=== PATIENT | female | born 1945 ===

== ENCOUNTER 2018-08-10 16:58 | Inpatient (IN) | payer OTHER ==
[2018-08-10] MEDS ORDERED: Sodium Chloride 0.9% 1,000 ML IV ONE (17:22)
[2018-08-10] MEDS ORDERED: Morphine 4 MG/ML VIAL ONE ×2 (17:29→21:02)
[2018-08-10] MEDS ORDERED: Sodium Chloride 0.9% 1,000 ML ONE (17:30)
--- NOTE | 2018-08-10 17:37 | C.PDOC ---
History Of Present Illness 73 y/o female, with history of hypertension, diabetes, and ventral hernia repair, comes in for evaluation of abdominal pain, worst on RUQ since last week. Patient denies any fever, nausea, or vomiting. Patient was seen here back in 2017 for similar symptoms where she had a suture granuloma removed. Patient was a poor historian. She has no other complaints at this time. Time Seen by Provider: 08/10/18 17:13 Chief Complaint (Nursing): Abdominal Pain History Per: Patient History/Exam Limitations: no limitations Onset/Duration Of Symptoms: Days Current Symptoms Are (Timing): Still Present Past Medical History Reviewed: Historical Data, Nursing Documentation, Vital Signs Vital Signs: Last Vital Signs Temp 98.5 F 08/10/18 17:02 Pulse 69 08/10/18 17:02 Resp 20 08/10/18 17:02 BP 219/99 H 08/10/18 17:02 Pulse Ox 100 08/10/18 17:02 - Medical History PMH: Arthritis, Asthma, COPD, Depression, Hiatal Hernia, HTN, Hyperc holesterolemia Denies: Chronic Kidney Disease Surgical History: Cholecystectomy - [facility] Procedures EXCISION OF RIGHT ABDOMEN MUSCLE, OPEN APPROACH (08/29/15) REMOVAL OF SYNTHETIC SUBSTITUTE FROM ABD WALL, OPEN APPROACH (08/29/15) SUTURE REMOVAL FROM TRUNK REGION (08/29/15) Family History: States: No Known Family Hx - Social History Hx Alcohol Use: No Hx Substance Use: No - Immunization History Hx Tetanus Toxoid Vaccination: No Hx Influenza Vaccination: Yes Hx Pneumococcal Vaccination: Yes Review Of Systems Except As Marked, All Systems Reviewed And Found Negative. Constitutional: Negative for: Fever, Chills Gastrointestinal: Positive for: Abdominal Pain (RUQ). Negative for: Nausea, Vomiting, Diarrhea Physical Exam - Physical Exam Appears: Non-toxic, Other (Uncomfortable from pain) Skin: Warm, Dry Head: Atraumatic, Normacephalic Eye(s): bilateral: Normal Inspection Oral Mucosa: Moist Neck: Supple Cardiovascular: Rhythm Regular, No Murmur Respiratory: Normal Breath Sounds, No Rales, No Rhonchi, No Wheezing Gastrointestinal/Abdominal: Tenderness (RUQ), No Guarding, No Rebound Back: No CVA Tenderness Extremity: No Pedal Edema Extremity: Bilateral: Atraumatic, Normal ROM Neurological/Psych: Oriented x3, Normal Speech ED Course And Treatment - Laboratory Results Result Diagrams: 08/10/18 17:43 08/10/18 17:43 O2 Sat by Pulse Oximetry: 100 (RA) Pulse Ox Interpretation: Normal - CT Scan/US Abd/Pel CT Other Rad Studies (CT/US): Read By Radiologist, Radiology Report Reviewed CT/US Interpretation: FINDINGS: LUNG BASES: The lung bases appear clear. No pleural effusions are seen. LIVER: Unremarkable. GALLBLADDER AND BILE DUCTS: Gallbladder not seen with certainty and may have been surgically removed. PANCREAS: Unremarkable. SPLEEN: Unremarkable. ADRENAL GLANDS: Unremarkable. KIDNEYS, URETERS, AND BLADDER: The kidneys appear within normal limits. There is no hydronephrosis or hydroureter. No urinary calculi are seen. STOMACH AND BOWEL: Unremarkable appearance of the stomach and bowel. No evidence of bowel obstruction. No evidence suggesting enteritis or colitis. Diverticular changes present throughout the colon mainly the descending and sigmoid colon. APPENDIX: No evidence of acute appendicitis on CT examination. PERITONEUM: No free fluid. No free air. LYMPH NODES: No lymphadenopathy is evident. REPRODUCTIVE: Uterus not seen. VASCULATURE: No evidence of abdominal aortic aneurysm. BONES: No aggressive appearing osseous lesion. No acute osseous pathology evide nt. There is thinning of the anterior abdominal musculature with postsurgical changes present anteriorly lower pelvic region with a small seroma measuring approximately 6.7 cm in width and 1.4 cm in thickness along the lower anterior abdominal wall likely postsurgical in nature. Radiopaque densities are seen within the anterior wall and just posterior to the anterior wall also likely postsurgical in nature. IMPRESSION: Postsurgical changes present within the abdomen and pelvis. Gallbladder has likely been surgically removed as well as the uterus. Diverticular changes present mainly at the sigmoid and descending colon. Small seroma measuring approximately 6.7 cm x 1.4 cm along the lower anterior abdominal wall. Close clinical correlation is advised. Medical Decision Making Medical Decision Making: ro pancreaitis obstruction postop complication Plan: --Abd/Pel CT --Labs --Chest XR --UA --Morphine 4 mg IVP --IV fluids 1L labs mild leukocytosis. ct shows seroma. case discussed with dr meier team. seen by karolina kraus. plan to admit ot medicine. accepted Disposition - Disposition Disposition: HOSPITALIZED Disposition Time: 20:51 Condition: STABLE - Clinical Impression Clinical Impression: Seroma, Intractable abdominal pain - Scribe Statement The provider has reviewed the documentation as recorded by the Sergeyibfaviola Rodriguez Provider Attestation: All medical record entries made by the Alexandre were at my direction and personally dictated by me. I have reviewed the chart and agree that the record accurately reflects my personal performance of the history, physical exam, medical decision making, and the department course for this patient. I have also personally directed, reviewed, and agree with the discharge instructions and disposition. Decision To Admit - Pt Status Changed To: Hospital Disposition Of: Observation - . Bed Request Type: Regular Admitting Physician: Jennifer Bueno Patient Diagnosis: Seroma, Intractable abdominal pain
[2018-08-10 17:48] LABS: BASO % 0.4 % (0.0-2.0); EOS # 0.2 K/uL (0.0-0.7); EOS % 1.4 % (0.0-4.0); HEMOGLOBIN 14.9 g/dL (11.0-16.0); LYMPH # 3.6 K/uL (1.0-4.3); LYMPH % 31.4 % (20.0-40.0); MEAN CORPUSCULAR HEMOGLOBIN 29.5 pg (27.0-31.0); MEAN CORPUSCULAR HGB CONC 32.8 g/dL (33.0-37.0); MEAN PLATELET VOLUME 8.1 fL (7.2-11.7); MONO # 0.9 K/uL (0.0-0.8); MONO % 7.5 % (0.0-10.0); NEUT # 6.7 K/uL (1.8-7.0); NEUT % 59.3 % (50.0-75.0); RBC 5.05 Mil/uL (3.80-5.20); RED CELL DISTRIBUTION WIDTH 13.9 % (11.5-14.5); WHITE BLOOD COUNT 11.3 K/uL (4.8-10.8)
[2018-08-10 18:00] LABS: ALB/GLOB RATIO 1.2 (1.0-2.1); ALBUMIN 4.2 g/dL (3.5-5.0); ALT/SGPT 10 U/L (9-52); AST/SGOT 23 U/L (14-36); BILIRUBIN,DIRECT 0.3 mg/dL (0.0-0.4); BLOOD UREA NITROGEN 14 mg/dL (7-17); CALCIUM 9.7 mg/dl (8.6-10.4); GFR NON-AFRICAN AMERICAN 54; LIPASE 141 U/L (23-300)
[2018-08-10 18:02] LABS: INR 1.2; PROTHROMBIN TIME 12.9 SECONDS (9.7-12.2)
--- NOTE | 2018-08-10 19:23 | CP.PCM.CON ---
History of Present Illness - History of Present Illness History of Present Illness: General Surgery Dr. Choi 73 y/o F w/ PMHx HTN, DM, COPD, presents to the ED c/o abd pain. Pt states pain started a few weeks [employer]. Pain described as sharp and constant. Nothing makes pain better or worse. Pain reported to radiate from RUQ to right flank/back. Pt reports similar pain in the past but not this severe. Pt has a scheduled appt w/ PMD tomorrow, 08/11, for the abd pain, but pt states pain too unbearable thus prompting ED visit. Pt admits to concurrent nausea and SOB (2/2 pain) but denies CP and vomiting. Pt also reports insomnia 2/2 pain. Pt denies F/C, D/C, dysuria. In the ED, labs WNL. CTA/P completed which is grossly normal and unchanged from CT in 2016 (last admission). Surgery consulted for abd pain of unknown origin. PMHx: see above, OA, HLD, depression Meds: reviewed in chart ALL: Percocet PSHx: Open Cholecystectomy, Appendectomy, hysterectomy, multiple ventral/incisional hernia repairs SHx: former tobacco use, denies EtOH, Drug use FHx: noncontributory Review of Systems - Review of Systems All systems: reviewed and no additional remarkable complaints except (see HPI) Past Patient History - Infectious Disease Hx of Infectious Diseases: None - Past Medical History & Family History Past Medical History?: Yes - Past Social History Smoking Status: Former Smoker - CARDIAC Hx Hypercholesterolemia: Yes Hx Hypertension: Yes - PULMONARY Hx Asthma: Yes Hx Chronic Obstructive Pulmonary Disease (COPD): Yes - NEUROLOGICAL Hx Neurological Disorder: No - HEENT Hx HEENT Problems: No - RENAL Hx Chronic Kidney Disease: No - ENDOCRINE/METABOLIC Hx Diabetes Mellitus Type 2: Yes - HEMATOLOGICAL/ONCOLOGICAL Hx Blood Disorders: No - INTEGUMENTARY Hx Dermatological Problems: No - MUSCULOSKELETAL/RHEUMATOLOGICAL Hx Arthritis: Yes - GASTROINTESTINAL Hx Gastrointestinal Disorders: No - GENITOURINARY/GYNECOLOGICAL Hx Genitourinary Disorders: No - PSYCHIATRIC Hx Depression: Yes Hx Substance Use: No - SURGICAL HISTORY Hx Cholecystectomy: Yes - ANESTHESIA Hx Anesthesia: Yes Meds Allergies/Adverse Reactions: Allergies Allergy/AdvReac Type Severity Reaction Status Date / Time acetaminophen [From Percocet] Allergy Verified 08/29/15 19:12 oxycodone HCl [From Percocet] Allergy Verified 08/29/15 19:12 Physical Exam - Constitutional Appears: Non-toxic, No Acute Distress - Head Exam Head Exam: NORMAL INSPECTION - Eye Exam Eye Exam: Normal appearance - ENT Exam ENT Exam: Mucous Membranes Moist - Respiratory Exam Respiratory Exam: NORMAL BREATHING PATTERN. absent: Accessory Muscle Use, Respiratory Distress - Cardiovascular Exam Cardiovascular Exam: REGULAR RHYTHM. absent: Bradycardia, Tachycardia - GI/Abdominal Exam GI & Abdominal Exam: Soft, Tenderness (TTP RUQ/epigastric). absent: Distended (obese), Firm, Guarding, Rigid Additional comments: multiple well healed scars. no hernia appreciated - Extremities Exam Extremities exam: Positive for: normal inspection - Neurological Exam Neurological exam: Alert, Oriented x3 - Psychiatric Exam Psychiatric exam: Normal Affect, Normal Mood - Skin Skin Exam: Dry, Intact, Normal Color, Warm Results - Vital Signs Recent Vital Signs: Last Vital Signs Temp 98.5 F 08/10/18 17:02 Pulse 60 08/10/18 18:39 Resp 20 08/10/18 18:39 BP 179/69 H 08/10/18 18:39 Pulse Ox 100 08/10/18 18:41 - Labs Result Diagrams: 08/10/18 17:43 08/10/18 17:43 Labs: Laboratory Results - last 24 hr 08/10/18 08/10/18 08/10/18 17:43 17:43 17:43 WBC 11.3 H RBC 5.05 Hgb 14.9 Hct 45.5 MCV 90.0 D MCH 29.5 MCHC 32.8 L RDW 13.9 Plt Count 294 MPV 8.1 Neut % (Auto) 59.3 Lymph % (Auto) 31.4 [place] % (Auto) 7.5 Eos % (Auto) 1.4 Baso % (Auto) 0.4 Neut # (Auto) 6.7 Lymph # (Auto) 3.6 [place] # (Auto) 0.9 H Eos # (Auto) 0.2 Baso # (Auto) 0.0 PT 12.9 H INR 1.2 APTT 38 H Sodium 140 Potassium 4.6 Chloride 102 Carbon Dioxide 29 Anion Gap 14 BUN 14 Creatinine 1.0 Est GFR ( Amer) > 60 Est GFR (Non-Af Amer) 54 Random Glucose 136 H D Calcium 9.7 Total Bilirubin 0.5 Direct Bilirubin 0.3 AST 23 ALT 10 Alkaline Phosphatase 113 Total Protein 7.7 Albumin 4.2 Globulin 3.4 Albumin/Globulin Ratio 1.2 Lipase 141 - Imaging and Cardiology CT scan - abdomen Status: Image reviewed by me, Report reviewed by me Assessment & Plan - Assessment and Plan (Free Text) Assessment: 73 y/o F w/ abd pain Plan: - diet as tolerated - pain management - monitor bowel fxn - bowel regimen - f/u EKG - NPO@MN for possible OR for scar exploration Pt discussed w/ Dr. Jimbo Koo DO PGY3
--- NOTE | 2018-08-10 20:03 | CP.PCM.HP ---
Past Patient History - Infectious Disease Hx of Infectious Diseases: None - Past Medical History & Family History Past Medical History?: Yes - Past Social History Smoking Status: Former Smoker - CARDIAC Hx Hypercholesterolemia: Yes Hx Hypertension: Yes - PULMONARY Hx Asthma: Yes Hx Chronic Obstructive Pulmonary Disease (COPD): Yes - NEUROLOGICAL Hx Neurological Disorder: No - HEENT Hx HEENT Problems: No - RENAL Hx Chronic Kidney Disease: No - ENDOCRINE/METABOLIC Hx Diabetes Mellitus Type 2: Yes - HEMATOLOGICAL/ONCOLOGICAL Hx Blood Disorders: No - INTEGUMENTARY Hx Dermatological Problems: No - MUSCULOSKELETAL/RHEUMATOLOGICAL Hx Arthritis: Yes - GASTROINTESTINAL Hx Gastrointestinal Disorders: No - GENITOURINARY/GYNECOLOGICAL Hx Genitourinary Disorders: No - PSYCHIATRIC Hx Depression: Yes Hx Substance Use: No - SURGICAL HISTORY Hx Cholecystectomy: Yes - ANESTHESIA Hx Anesthesia: Yes Meds Allergies/Adverse Reactions: Allergies Allergy/AdvReac Type Severity Reaction Status Date / Time acetaminophen [From Percocet] Allergy Verified 08/29/15 19:12 oxycodone HCl [From Percocet] Allergy Verified 08/29/15 19:12 Physical Exam - Constitutional Appears: Well - Head Exam Head Exam: ATRAUMATIC, NORMAL INSPECTION, NORMOCEPHALIC - Eye Exam Eye Exam: EOMI, Normal appearance, PERRL Pupil Exam: NORMAL ACCOMODATION, PERRL - ENT Exam ENT Exam: Mucous Membranes Moist, Normal Exam - Neck Exam Neck exam: Positive for: Normal Inspection - Respiratory Exam Respiratory Exam: Decreased Breath Sounds - Cardiovascular Exam Cardiovascular Exam: REGULAR RHYTHM, +S1, +S2 - GI/Abdominal Exam GI & Abdominal Exam: Normal Bowel Sounds, Soft - Rectal Exam Rectal Exam: Deferred Results - Vital Signs Recent Vital Signs: Last Vital Signs Temp 98.5 F 08/10/18 17:02 Pulse 60 08/10/18 18:39 Resp 20 08/10/18 18:39 BP 179/69 H 08/10/18 18:39 Pulse Ox 100 08/10/18 18:41 - Labs Result Diagrams: 08/10/18 17:43 08/10/18 17:43 Labs: Laboratory Results - last 24 hr 08/10/18 08/10/18 08/10/18 17:43 17:43 17:43 WBC 11.3 H RBC 5.05 Hgb 14.9 Hct 45.5 MCV 90.0 D MCH 29.5 MCHC 32.8 L RDW 13.9 Plt Count 294 MPV 8.1 Neut % (Auto) 59.3 Lymph % (Auto) 31.4 [place] % (Auto) 7.5 Eos % (Auto) 1.4 Baso % (Auto) 0.4 Neut # (Auto) 6.7 Lymph # (Auto) 3.6 [place] # (Auto) 0.9 H Eos # (Auto) 0.2 Baso # (Auto) 0.0 PT 12.9 H INR 1.2 APTT 38 H Sodium 140 Potassium 4.6 Chloride 102 Carbon Dioxide 29 Anion Gap 14 BUN 14 Creatinine 1.0 Est GFR ( Amer) > 60 Est GFR (Non-Af Amer) 54 Random Glucose 136 H D Calcium 9.7 Total Bilirubin 0.5 Direct Bilirubin 0.3 AST 23 ALT 10 Alkaline Phosphatase 113 Total Protein 7.7 Albumin 4.2 Globulin 3.4 Albumin/Globulin Ratio 1.2 Lipase 141
[2018-08-10 20:15] LABS: SQUAMOUS EPITHIAL 5 /hpf (0-5); URINE BILIRUBIN NEGATIVE (NEGATIVE); URINE BLOOD NEGATIVE (NEGATIVE); URINE CLARITY Clear (Clear); URINE COLOR Straw (YELLOW); URINE GLUCOSE (UA) NORMAL (Normal); URINE LEUKOCYTE ESTERASE NEG Leu/uL (Negative); URINE PROTEIN NEGATIVE (NEGATIVE); URINE UROBILINOGEN NORMAL mg/dL (0.2-1.0)
[2018-08-10] MEDS: Docusate-Senna 50 mg-8.6 mg Tab PO SCH (20:45)
[2018-08-10] MEDS: Lactated Ringer's 1,000 ML IV SCH (20:59)
[2018-08-10] MEDS: Morphine 4 MG/ML VIAL IVP PRN (21:05)
[2018-08-10] MEDS: Piperacillin/Tazobact 3.375 GM in Sodium Chloride 100 ML IVPB SCH (23:03)
[2018-08-11] MEDS: Tramadol 25 mg PO PRN ×2 (00:12→20:29)
[2018-08-11] MEDS: Piperacillin/Tazobact 3.375 GM in Sodium Chloride 100 ML IVPB SCH ×3 (06:25→21:52)
--- NOTE | 2018-08-11 09:53 | RAD ---
Date of service: 08/10/2018 HISTORY: abd pain COMPARISON: 05/03/2016 FINDINGS: LUNGS: No active pulmonary disease. PLEURA: No significant pleural effusion identified, no pneumothorax apparent. CARDIOVASCULAR: No aortic atherosclerotic calcification present. Normal cardiac size. No pulmonary vascular congestion. OSSEOUS STRUCTURES: No significant abnormalities. VISUALIZED UPPER ABDOMEN: Normal. OTHER FINDINGS: None. IMPRESSION: No active disease.
[2018-08-11] MEDS ORDERED: OXAPROZIN 600 MG PO SCH (10:00)
[2018-08-11] MEDS ORDERED: LEFLUNOMIDE 10 MG PO SCH (10:00)
[2018-08-11] MEDS: Docusate-Senna 50 mg-8.6 mg Tab PO SCH ×2 (10:24→18:16)
[2018-08-11] MEDS: Lidocaine 5% Patch TD SCH (10:25)
--- NOTE | 2018-08-11 11:36 | CT ---
PROCEDURE: CT Abdomen and Pelvis without Oral or IV contrast. HISTORY: abd pain COMPARISON: None available. TECHNIQUE: Contiguous axial images of the abdomen and pelvis. No oral or IV contrast administered. Coronal and Sagittal reformats generated and reviewed. Radiation dose: Total exam DLP = 815.31 mGy-cm. This CT exam was performed using one or more of the following dose reduction techniques: Automated exposure control, adjustment of the mA and/or kV according to patient size, and/or use of iterative reconstruction technique. FINDINGS: There is limited evaluation of the solid organs without the administration of IV contrast. LOWER THORAX: No visible consolidation, pleural effusion, or pneumothorax. 3 mm right lower lobe calcified granuloma. Small hiatal hernia/distal esophageal wall thickening. LIVER: Hepatomegaly. GALLBLADDER AND BILE DUCTS: Unremarkable. PANCREAS: Unremarkable. SPLEEN: Unremarkable. ADRENALS: Unremarkable. KIDNEYS AND URETERS: No hydronephrosis or obstructing renal calculus. BLADDER: REPRODUCTIVE: Uterus is absent presumably due to hysterectomy. APPENDIX: The appendix is not identified. No secondary signs of acute appendicitis. BOWEL: The stomach is nondistended. Lack of oral contrast limits evaluation for bowel pathology. The bowel loops appear within normal limits of caliber without evidence of intestinal obstruction. Diverticulosis without CT evidence of acute diverticulitis. PERITONEUM: No significant free fluid. No definite free air. LYMPH NODES: No bulky lymphadenopathy identified. VASCULATURE: Atherosclerotic calcifications of the aorta and branches. No aortic aneurysm. BONES: Osseous demineralization. Degenerative changes. 8 mm T12 vertebral body lucency. OTHER FINDINGS: Again seen is a small collection which now measures approximately 6.7 x 1.4 cm along the lower anterior abdominal wall. Radiopaque densities are noted within abdomen posterior to this finding presumably postsurgical in etiology. IMPRESSION: Small collection again seen within the lower anterior abdominal wall as above. Additional findings as above. Preliminary impression was provided by [employer].
--- NOTE | 2018-08-11 12:13 | CP.PCM.PN ---
Subjective - Date & Time of Evaluation Date of Evaluation: 08/11/18 Time of Evaluation: 12:09 - Subjective Subjective: point tenderness epigastric and ruq. appears superficial and seems related to previus hernia repair. patients pain is persistent and severe suggesting possible neuroma or suture grnuoma. plan will take to OR explore involved are and possibly excise neuroma or suture granuloma. will schedule for the am. Objective - Vital Signs/Intake and Output Vital Signs (last 24 hours): Temp Pulse Resp BP Pulse Ox 97.8 F 62 20 164/66 H 96 08/11/18 07:06 08/11/18 07:06 08/11/18 07:06 08/11/18 07:06 08/11/18 11:30 - Medications Medications: Current Medications Famotidine (Pepcid) 20 mg IVP DAILY [facility] Last Admin: 08/11/18 10:47 Dose: 20 mg Glipizide (Glucotrol) 5 mg PO BID [facility] Last Admin: 08/11/18 10:23 Dose: Not Given Home Med (Leflunomide [Leflunomide]) 10 mg PO DAILY [facility] Home Med (Oxaprozin [Oxaprozin]) 600 mg PO DAILY [facility] Home Med (Valsartan [Diovan]) 1 tab PO DAILY [facility] Lactated Ringer's (Lactated Ringer's) 1,000 mls @ 100 mls/hr IV .Q10H [facility] Last Admin: 08/10/18 20:59 Dose: 100 mls/hr Piperacillin Sod/Tazobactam (Sod 3.375 gm/ Sodium Chloride) 100 mls @ 200 mls/hr IVPB Q8H [facility]; Protocol Last Admin: 08/11/18 06:25 Dose: 200 mls/hr Lidocaine (Lidoderm) 1 ea TD DAILY [facility] Last Admin: 08/11/18 10:25 Dose: Not Given Metoclopramide HCl (Reglan) 10 mg IVP Q8 [facility] Montelukast Sodium (Singulair) 10 mg PO DAILY [facility] Last Admin: 08/11/18 10:24 Dose: Not Given Morphine Sulfate (Morphine) 4 mg IVP Q4 PRN PRN Reason: Pain, severe (8-10) Last Admin: 08/10/18 21:05 Dose: 4 mg Pregabalin (Lyrica) 75 mg PO DAILY [facility] Last Admin: 08/11/18 10:23 Dose: Not Given Rosuvastatin Calcium (Crestor) 20 mg PO HS [facility] Last Admin: 08/10/18 23:03 Dose: 20 mg Senna/Docusate Sodium (Senokot S 50 Mg-8.6 Mg) 1 tab PO BID [facility] Last Admin: 08/11/18 10:24 Dose: Not Given Tramadol HCl (Ultram) 25 mg PO Q6 PRN PRN Reason: Pain, moderate (4-7) Last Admin: 08/11/18 00:12 Dose: 25 mg Zolpidem Tartrate (Ambien) 5 mg PO HS [facility] Last Admin: 08/10/18 23:03 Dose: 5 mg - Labs Labs: 08/10/18 17:43 08/10/18 17:43 PT 12.9 SECONDS (9.7-12.2) H 08/10/18 17:43 INR 1.2 08/10/18 17:43 APTT 38 SECONDS (21-34) H 08/10/18 17:43
[2018-08-11] MEDS: Lactated Ringer's 1,000 ML IV SCH ×3 (12:50→21:53)
--- NOTE | 2018-08-11 16:43 | CP.PCM.CON ---
<Shady Fournier - Last Filed: 08/11/18 16:44> History of Present Illness - History of Present Illness History of Present Illness: 73 y/o female, with history of hypertension, diabetes, and ventral hernia repair, comes in for evaluation of abdominal pain, worst on RUQ since last week. Patient denies any fever, nausea, or vomiting. Patient was seen here back in 2017 for similar symptoms where she had a suture granuloma removed. Patient was a poor historian. She has no other complaints at this time. PMHX: HTN chronic fair, HTN chronic mild, LIPIDS maintained on statin Past Patient History - Infectious Disease Hx of Infectious Diseases: None - Past Medical History & Family History Past Medical History?: Yes - Past Social History Smoking Status: Former Smoker - CARDIAC Hx Hypercholesterolemia: Yes Hx Hypertension: Yes - PULMONARY Hx Asthma: Yes Hx Chronic Obstructive Pulmonary Disease (COPD): Yes - NEUROLOGICAL Hx Neurological Disorder: No - HEENT Hx HEENT Problems: No - RENAL Hx Chronic Kidney Disease: No - ENDOCRINE/METABOLIC Hx Diabetes Mellitus Type 2: Yes - HEMATOLOGICAL/ONCOLOGICAL Hx Blood Disorders: No - INTEGUMENTARY Hx Dermatological Problems: No - MUSCULOSKELETAL/RHEUMATOLOGICAL Hx Falls: No - GASTROINTESTINAL Hx Gastrointestinal Disorders: No - GENITOURINARY/GYNECOLOGICAL Hx Genitourinary Disorders: No - PSYCHIATRIC Hx Depression: Yes Hx Substance Use: No - SURGICAL HISTORY Hx Cholecystectomy: Yes - ANESTHESIA Hx Anesthesia: Yes Meds Allergies/Adverse Reactions: Allergies Allergy/AdvReac Type Severity Reaction Status Date / Time acetaminophen [From Percocet] Allergy ITCHING Verified 08/10/18 20:22 iodine Allergy ITCHING Verified 08/10/18 20:22 oxycodone HCl [From Percocet] Allergy ITCHING Verified 08/10/18 20:22 seafood Allergy ITCHING Uncoded 08/10/18 20:22 - Medications Medications: Current Medications Famotidine (Pepcid) 20 mg IVP DAILY [facility] Last Admin: 08/11/18 10:47 Dose: 20 mg Glipizide (Glucotrol) 5 mg PO BID [facility] Last Admin: 08/11/18 10:23 Dose: Not Given Home Med (Leflunomide [Leflunomide]) 10 mg PO DAILY [facility] Home Med (Oxaprozin [Oxaprozin]) 600 mg PO DAILY [facility] Lactated Ringer's (Lactated Ringer's) 1,000 mls @ 100 mls/hr IV .Q10H [facility] Last Admin: 08/11/18 12:50 Dose: 100 mls/hr Piperacillin Sod/Tazobactam (Sod 3.375 gm/ Sodium Chloride) 100 mls @ 200 mls/h r IVPB Q8H [facility]; Protocol Last Admin: 08/11/18 14:29 Dose: 200 mls/hr Lidocaine (Lidoderm) 1 ea TD DAILY [facility] Last Admin: 08/11/18 10:25 Dose: Not Given Losartan Potassium (Cozaar) 100 mg PO DAILY [facility] Metoclopramide HCl (Reglan) 10 mg IVP Q8 [facility] Montelukast Sodium (Singulair) 10 mg PO DAILY [facility] Last Admin: 08/11/18 10:24 Dose: Not Given Morphine Sulfate (Morphine) 4 mg IVP Q4 PRN PRN Reason: Pain, severe (8-10) Last Admin: 08/10/18 21:05 Dose: 4 mg Pregabalin (Lyrica) 75 mg PO DAILY [facility] Last Admin: 08/11/18 10:23 Dose: Not Given Rosuvastatin Calcium (Crestor) 20 mg PO HS [facility] Last Admin: 08/10/18 23:03 Dose: 20 mg Senna/Docusate Sodium (Senokot S 50 Mg-8.6 Mg) 1 tab PO BID [facility] Last Admin: 08/11/18 10:24 Dose: Not Given Tramadol HCl (Ultram) 25 mg PO Q6 PRN PRN Reason: Pain, moderate (4-7) Last Admin: 08/11/18 00:12 Dose: 25 mg Zolpidem Tartrate (Ambien) 5 mg PO HS [facility] Last Admin: 08/10/18 23:03 Dose: 5 mg Results - Vital Signs Recent Vital Signs: Last Vital Signs Temp 97.8 F 08/11/18 15:00 Pulse 60 08/11/18 15:00 Resp 20 08/11/18 15:00 BP 155/73 H 08/11/18 15:00 Pulse Ox 96 08/11/18 15:00 - Labs Result Diagrams: 08/10/18 17:43 08/10/18 17:43 Labs: Laboratory Results - last 24 hr 08/10/18 08/10/18 08/10/18 17:43 17:43 17:43 WBC 11.3 H RBC 5.05 Hgb 14.9 Hct 45.5 MCV 90.0 D MCH 29.5 MCHC 32.8 L RDW 13.9 Plt Count 294 MPV 8.1 Neut % (Auto) 59.3 Lymph % (Auto) 31.4 [place] % (Auto) 7.5 Eos % (Auto) 1.4 Baso % (Auto) 0.4 Neut # (Auto) 6.7 Lymph # (Auto) 3.6 [place] # (Auto) 0.9 H Eos # (Auto) 0.2 Baso # (Auto) 0.0 PT 12.9 H INR 1.2 APTT 38 H Sodium 140 Potassium 4.6 Chloride 102 Carbon Dioxide 29 Anion Gap 14 BUN 14 Creatinine 1.0 Est GFR ( Amer) > 60 Est GFR (Non-Af Amer) 54 POC Glucose (mg/dL) Random Glucose 136 H D Calcium 9.7 Total Bilirubin 0.5 Direct Bilirubin 0.3 AST 23 ALT 10 Alkaline Phosphatase 113 Total Protein 7.7 Albumin 4.2 Globulin 3.4 Albumin/Globulin Ratio 1.2 Lipase 141 Urine Color Urine Clarity Urine pH Ur Specific [place] Urine Protein Urine Glucose (UA) Urine Ketones Urine Blood Urine Nitrate Urine Bilirubin Urine Urobilinogen Ur Leukocyte Esterase Urine WBC (Auto) Urine RBC (Auto) Ur Squamous Epith Cells 08/10/18 08/11/18 08/11/18 19:59 06:43 11:02 WBC RBC Hgb Hct MCV MCH MCHC RDW Plt Count MPV Neut % (Auto) Lymph % (Auto) [place] % (Auto) Eos % (Auto) Baso % (Auto) Neut # (Auto) Lymph # (Auto) [place] # (Auto) Eos # (Auto) Baso # (Auto) PT INR APTT Sodium Potassium Chloride Carbon Dioxide Anion Gap BUN Creatinine Est GFR ( Amer) Est GFR (Non-Af Amer) POC Glucose (mg/dL) 130 H 142 H Random Glucose Calcium Total Bilirubin Direct Bilirubin AST ALT Alkaline Phosphatase Total Protein Albumin Globulin Albumin/Globulin Ratio Lipase Urine Color Straw Urine Clarity Clear Urine pH 7.0 Ur Specific [place] 1.008 Urine Protein Negative Urine Glucose (UA) Normal Urine Ketones Negative Urine Blood Negative Urine Nitrate Negative Urine Bilirubin Negative Urine Urobilinogen Normal Ur Leukocyte Esterase Neg Urine WBC (Auto) < 1 Urine RBC (Auto) < 1 Ur Squamous Epith Cells 5 08/11/18 15:54 WBC RBC Hgb Hct MCV MCH MCHC RDW Plt Count MPV Neut % (Auto) Lymph % (Auto) [place] % (Auto) Eos % (Auto) Baso % (Auto) Neut # (Auto) Lymph # (Auto) [place] # (Auto) Eos # (Auto) Baso # (Auto) PT INR APTT Sodium Potassium Chloride Carbon Dioxide Anion Gap BUN Creatinine Est GFR ( Amer) Est GFR (Non-Af Amer) POC Glucose (mg/dL) 126 H Random Glucose Calcium Total Bilirubin Direct Bilirubin AST ALT Alkaline Phosphatase Total Protein Albumin Globulin Albumin/Globulin Ratio Lipase Urine Color Urine Clarity Urine pH Ur Specific [place] Urine Protein Urine Glucose (UA) Urine Ketones Urine Blood Urine Nitrate Urine Bilirubin Urine Urobilinogen Ur Leukocyte Esterase Urine WBC (Auto) Urine RBC (Auto) Ur Squamous Epith Cells - Imaging and Cardiology Chest x-ray Status: Image reviewed by me Assessment & Plan - Assessment and Plan (Free Text) Assessment: 73 y/o with possible abdominal collection: may need exploration in OR > EKG: NSR > CXR: No infiltrate or effusion HTN: Uncontrolled on losartan, add norvasc 5 LIPIDS: cont statin Plan echo to evaluate cardiac structure and function prior to OR DVT prophylaxis cont DM control <Madhu Warren - Last Filed: 08/12/18 10:18> Review of Systems - Review of Systems All systems: reviewed and no additional remarkable complaints except Review of Systems: Abdominal pain Meds - Medications Medications: Current Medications Famotidine (Pepcid) 20 mg IVP DAILY [facility] Last Admin: 08/12/18 09:49 Dose: 20 mg Glipizide (Glucotrol) 5 mg PO BID [facility] Last Admin: 08/11/18 18:16 Dose: 5 mg Home Med (Leflunomide [Leflunomide]) 10 mg PO DAILY [facility] Lactated Ringer's (Lactated Ringer's) 1,000 mls @ 100 mls/hr IV .Q10H [facility] Last Admin: 08/12/18 02:00 Dose: Not Given Piperacillin Sod/Tazobactam (Sod 3.375 gm/ Sodium Chloride) 100 mls @ 200 mls/hr IVPB Q8H [facility]; Protocol Last Admin: 08/12/18 05:57 Dose: 200 mls/hr Lidocaine (Lidoderm) 1 ea TD DAILY [facility] Last Admin: 08/12/18 09:50 Dose: 1 ea Losartan Potassium (Cozaar) 100 mg PO DAILY [facility] Last Admin: 08/12/18 09:49 Dose: 100 mg Metoclopramide HCl (Reglan) 5 mg IVP Q8 [facility] Last Admin: 08/12/18 05:58 Dose: 5 mg Montelukast Sodium (Singulair) 10 mg PO DAILY [facility] Last Admin: 08/12/18 09:49 Dose: 10 mg Morphine Sulfate (Morphine) 4 mg IVP Q4 PRN PRN Reason: Pain, severe (8-10) Last Admin: 08/11/18 20:33 Dose: 4 mg Pregabalin (Lyrica) 75 mg PO DAILY [facility] Last Admin: 08/12/18 09:48 Dose: 75 mg Rosuvastatin Calcium (Crestor) 20 mg PO HS [facility] Last Admin: 08/11/18 21:52 Dose: 20 mg Senna/Docusate Sodium (Senokot S 50 Mg-8.6 Mg) 1 tab PO BID [facility] Last Admin: 08/11/18 18:16 Dose: 1 tab Tramadol HCl (Ultram) 25 mg PO Q6 PRN PRN Reason: Pain, moderate (4-7) Last Admin: 08/12/18 09:48 Dose: 25 mg Zolpidem Tartrate (Ambien) 5 mg PO HS [facility] Last Admin: 08/11/18 21:26 Dose: Not Given Physical Exam - Constitutional Appears: Well, Non-toxic - Head Exam Head Exam: ATRAUMATIC, NORMAL INSPECTION - Eye Exam Eye Exam: PERRL. absent: Scleral icterus - ENT Exam ENT Exam: Mucous Membranes Moist, Normal External Ear Exam - Neck Exam Neck exam: Negative for: Lymphadenopathy, Thyromegaly - Respiratory Exam Respiratory Exam: Clear to Auscultation Bilateral, NORMAL BREATHING PATTERN - Cardiovascular Exam Cardiovascular Exam: REGULAR RHYTHM, RRR, +S1. absent: JVD, Systolic Murmur - GI/Abdominal Exam GI & Abdominal Exam: Normal Bowel Sounds. absent: Organomegaly - Extremities Exam Extremities exam: Negative for: calf tenderness, pedal edema - Neurological Exam Neurological exam: CN II-XII Intact, Oriented x3 - Psychiatric Exam Psychiatric exam: Normal Affect, Normal Mood Results - Vital Signs Recent Vital Signs: Last Vital Signs Temp 98.0 F 08/12/18 08:00 Pulse 57 L 08/12/18 08:00 Resp 20 08/12/18 08:00 BP 161/75 H 08/12/18 08:00 Pulse Ox 95 08/12/18 08:00 - Labs Result Diagrams: 08/10/18 17:43 08/10/18 17:43 Labs: Laboratory Results - last 24 hr 08/11/18 08/11/18 08/11/18 11:02 15:54 20:56 POC Glucose (mg/dL) 142 H 126 H 97 08/12/18 06:47 POC Glucose (mg/dL) 109 - EKG Data EKG Interpreted by: Myself EKG shows normal: Sinus rhythm Rate: Normal - Imaging and Cardiology 2D echo Status: Image reviewed by me Additional comment: Normal LV systolic function Stage I diastolic dysfunction Assessment & Plan - Assessment and Plan (Free Text) Assessment: 2D echo reviewed by me shows normal filling pressures, normal valve function pateint was seen and exmined by myself. I reviewed the H&P above and agree with the findings PATEINT PERFORMS >4 METS DAILY. SHE IS ACCEPTABLE RISK FOR GRANULOMA EXPLORATION AND REPAIR. - Date & Time Date: 08/12/18 Time: 10:18
--- NOTE | 2018-08-11 20:13 | CP.PCM.PN ---
Subjective - Date & Time of Evaluation Date of Evaluation: 08/11/18 Time of Evaluation: 08:15 - Subjective Subjective: clinically same Objective - Vital Signs/Intake and Output Vital Signs (last 24 hours): Temp Pulse Resp BP Pulse Ox 97.8 F 60 20 155/73 H 96 08/11/18 15:00 08/11/18 15:00 08/11/18 15:00 08/11/18 15:00 08/11/18 15:00 - Medications Medications: Current Medications Famotidine (Pepcid) 20 mg IVP DAILY [facility] Last Admin: 08/11/18 10:47 Dose: 20 mg Glipizide (Glucotrol) 5 mg PO BID [facility] Last Admin: 08/11/18 18:16 Dose: 5 mg Home Med (Leflunomide [Leflunomide]) 10 mg PO DAILY [facility] Lactated Ringer's (Lactated Ringer's) 1,000 mls @ 100 mls/hr IV .Q10H [facility] Last Admin: 08/11/18 17:19 Dose: Not Given Piperacillin Sod/Tazobactam (Sod 3.375 gm/ Sodium Chloride) 100 mls @ 200 mls/hr IVPB Q8H [facility]; Protocol Last Admin: 08/11/18 14:29 Dose: 200 mls/hr Lidocaine (Lidoderm) 1 ea TD DAILY [facility] Last Admin: 08/11/18 10:25 Dose: Not Given Losartan Potassium (Cozaar) 100 mg PO DAILY [facility] Metoclopramide HCl (Reglan) 5 mg IVP Q8 [facility] Montelukast Sodium (Singulair) 10 mg PO DAILY [facility] Last Admin: 08/11/18 10:24 Dose: Not Given Morphine Sulfate (Morphine) 4 mg IVP Q4 PRN PRN Reason: Pain, severe (8-10) Last Admin: 08/10/18 21:05 Dose: 4 mg Pregabalin (Lyrica) 75 mg PO DAILY [facility] Last Admin: 08/11/18 10:23 Dose: Not Given Rosuvastatin Calcium (Crestor) 20 mg PO HS [facility] Last Admin: 08/10/18 23:03 Dose: 20 mg Senna/Docusate Sodium (Senokot S 50 Mg-8.6 Mg) 1 tab PO BID [facility] Last Admin: 08/11/18 18:16 Dose: 1 tab Tramadol HCl (Ultram) 25 mg PO Q6 PRN PRN Reason: Pain, moderate (4-7) Last Admin: 08/11/18 00:12 Dose: 25 mg Zolpidem Tartrate (Ambien) 5 mg PO HS [facility] Last Admin: 08/10/18 23:03 Dose: 5 mg - Labs Labs: 08/10/18 17:43 08/10/18 17:43 PT 12.9 SECONDS (9.7-12.2) H 08/10/18 17:43 INR 1.2 08/10/18 17:43 APTT 38 SECONDS (21-34) H 08/10/18 17:43 - Constitutional Appears: Well - Head Exam Head Exam: ATRAUMATIC, NORMAL INSPECTION, NORMOCEPHALIC - Eye Exam Eye Exam: EOMI, Normal appearance, PERRL Pupil Exam: NORMAL ACCOMODATION, PERRL - ENT Exam ENT Exam: Mucous Membranes Moist, Normal Exam - Neck Exam Neck Exam: Full ROM, Normal Inspection. absent: Lymphadenopathy - Respiratory Exam Respiratory Exam: Decreased Breath Sounds - Cardiovascular Exam Cardiovascular Exam: REGULAR RHYTHM, +S1, +S2 - GI/Abdominal Exam GI & Abdominal Exam: Soft, Diminished Bowel Sounds - Rectal Exam Rectal Exam: Deferred
[2018-08-11] MEDS: Morphine 4 MG/ML VIAL IVP PRN (20:33)
[2018-08-12] MEDS: Lactated Ringer's 1,000 ML IV SCH ×4 (02:00→22:07)
[2018-08-12] MEDS: Piperacillin/Tazobact 3.375 GM in Sodium Chloride 100 ML IVPB SCH ×3 (05:57→22:01)
--- NOTE | 2018-08-12 07:07 | CP.PCM.PN ---
Subjective - Date & Time of Evaluation Date of Evaluation: 08/12/18 Time of Evaluation: 07:07 - Subjective Subjective: Medicine Progress Note - Dr Gee Bueno's service Patient seen and examined at bedside. Per nursing no acute events overnight. Patient for OR this afternoon. Offers no complaints at this time. Objective - Vital Signs/Intake and Output Vital Signs (last 24 hours): Temp Pulse Resp BP Pulse Ox 97.8 F 53 L 20 138/64 98 08/11/18 23:20 08/11/18 23:20 08/11/18 23:20 08/11/18 23:20 08/12/18 00:08 Intake and Output: 08/12/18 08/12/18 06:59 18:59 Intake Total 900 Balance 900 - Medications Medications: Current Medications Famotidine (Pepcid) 20 mg IVP DAILY [facility] Last Admin: 08/11/18 10:47 Dose: 20 mg Glipizide (Glucotrol) 5 mg PO BID [facility] Last Admin: 08/11/18 18:16 Dose: 5 mg Home Med (Leflunomide [Leflunomide]) 10 mg PO DAILY [facility] Lactated Ringer's (Lactated Ringer's) 1,000 mls @ 100 mls/hr IV .Q10H [facility] Last Admin: 08/12/18 02:00 Dose: Not Given Piperacillin Sod/Tazobactam (Sod 3.375 gm/ Sodium Chloride) 100 mls @ 200 mls/hr IVPB Q8H [facility]; Protocol Last Admin: 08/12/18 05:57 Dose: 200 mls/hr Lidocaine (Lidoderm) 1 ea TD DAILY [facility] Last Admin: 08/11/18 10:25 Dose: Not Given Losartan Potassium (Cozaar) 100 mg PO DAILY [facility] Metoclopramide HCl (Reglan) 5 mg IVP Q8 [facility] Last Admin: 08/12/18 05:58 Dose: 5 mg Montelukast Sodium (Singulair) 10 mg PO DAILY [facility] Last Admin: 08/11/18 10:24 Dose: Not Given Morphine Sulfate (Morphine) 4 mg IVP Q4 PRN PRN Reason: Pain, severe (8-10) Last Admin: 08/11/18 20:33 Dose: 4 mg Pregabalin (Lyrica) 75 mg PO DAILY [facility] Last Admin: 08/11/18 10:23 Dose: Not Given Rosuvastatin Calcium (Crestor) 20 mg PO [facility] Last Admin: 08/11/18 21:52 Dose: 20 mg Senna/Docusate Sodium (Senokot S 50 Mg-8.6 Mg) 1 tab PO BID [facility] Last Admin: 08/11/18 18:16 Dose: 1 tab Tramadol HCl (Ultram) 25 mg PO Q6 PRN PRN Reason: Pain, moderate (4-7) Last Admin: 08/11/18 00:12 Dose: 25 mg Zolpidem Tartrate (Ambien) 5 mg PO [facility] Last Admin: 08/11/18 21:26 Dose: Not Given - Labs Labs: 08/10/18 17:43 08/10/18 17:43 PT 12.9 SECONDS (9.7-12.2) H 08/10/18 17:43 INR 1.2 08/10/18 17:43 APTT 38 SECONDS (21-34) H 08/10/18 17:43 - Constitutional Appears: Non-toxic, No Acute Distress - Head Exam Head Exam: ATRAUMATIC, NORMAL INSPECTION, NORMOCEPHALIC - Eye Exam Eye Exam: EOMI, Normal appearance Pupil Exam: NORMAL ACCOMODATION - ENT Exam ENT Exam: Mucous Membranes Moist - Neck Exam Neck Exam: Full ROM - Respiratory Exam Respiratory Exam: Clear to Ausculation Bilateral, NORMAL BREATHING PATTERN. absent: Rales, Rhonchi, Wheezes - Cardiovascular Exam Cardiovascular Exam: REGULAR RHYTHM, +S1, +S2 - GI/Abdominal Exam GI & Abdominal Exam: Soft. absent: Guarding, Rigid, Tenderness Additional comments: dressing c/d/i - Extremities Exam Extremities Exam: Normal Inspection - Neurological Exam Neurological Exam: Alert, Awake, Oriented x3 - Psychiatric Exam Psychiatric exam: Normal Affect, Normal Mood - Skin Skin Exam: Normal Color, Warm Assessment and Plan - Assessment and Plan (Free Text) Assessment: Abdominal Pain -Patient is s/p Abdominal wall exploration. Excision of mesh POD#0 -Pain has improved -Pain control as needed -Diet to be advanced as needed -Continue ISS use Imaging: CT abdomen/pelvis: Again seen is a small collection which now measures approximately 6.7 x 1.4 cm along the lower anterior abdominal wall. Radiopaque densities are noted within abdomen posterior to this finding presumably postsurgical in etiology. (see full report) Hypertension -Cozaar 100mg PO daily Diabetes Mellitus -Glipizide 5mg PO daily Hyperlipidemia -Crestor 20mg PO HS GI/DVT ppx : -Pepcid 20mg IVP daily -SCDs DISPO: Will advance diet as tolerated. For possible d/c home tomorrow. Plan discussed with Dr Gee Hager DO PGY-2
[2018-08-12] MEDS: Tramadol 25 mg PO PRN (09:48)
[2018-08-12] MEDS: Docusate-Senna 50 mg-8.6 mg Tab PO SCH ×2 (09:48→18:00)
[2018-08-12] MEDS: Lidocaine 5% Patch TD SCH (09:50)
[2018-08-12] MEDS ORDERED: Midazolam 2 MG/2 ML VIAL ONE (13:21)
[2018-08-12] MEDS ORDERED: Propofol 10 mg/ml Inj (20 ML) ONE (13:21)
[2018-08-12] MEDS ORDERED: Piperacillin/Tazobact 3.375 gm 100 ML IVPB ONE (14:08)
[2018-08-12] MEDS ORDERED: Bupivacaine-Epi 0.5%-1:200,000 PF Inj ONE (14:49)
[2018-08-12] MEDS ORDERED: HYDROmorphone 0.5 mg/0.5 ml ISec IVP PRN (15:33)
--- NOTE | 2018-08-12 15:33 | PCM.SURG1 ---
Surgeon's Initial Post Op Note - Surgeon's Notes Surgeon: Dr. Choi [employer] Executive Producer: Dr. 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 Excision of mesh Specimen/Specimens Removed: portion of mesh Estimated Blood Loss: EBL {In ML}: 5 Blood Products Given: N/A Drains Used: No Drains Post-Op Condition: Good Date of Surgery/Procedure: 08/12/18 Time of Surgery/Procedure: 15:34
--- NOTE | 2018-08-12 18:04 | CP.PCM.PN ---
Subjective - Date & Time of Evaluation Date of Evaluation: 08/12/18 Time of Evaluation: 08:15 - Subjective Subjective: clinically same Objective - Vital Signs/Intake and Output Vital Signs (last 24 hours): Temp Pulse Resp BP Pulse Ox 97.3 F L 63 20 166/76 H 95 08/12/18 17:03 08/12/18 17:03 08/12/18 17:03 08/12/18 17:03 08/12/18 17:03 Intake and Output: 08/12/18 08/12/18 06:59 18:59 Intake Total 900 950 Balance 900 950 - Medications Medications: Current Medications Famotidine (Pepcid) 20 mg IVP DAILY [facility] Last Admin: 08/12/18 09:49 Dose: 20 mg Glipizide (Glucotrol) 5 mg PO BID [facility] Last Admin: 08/12/18 18:00 Dose: 5 mg Home Med (Leflunomide [Leflunomide]) 10 mg PO DAILY [facility] Lactated Ringer's (Lactated Ringer's) 1,000 mls @ 100 mls/hr IV .Q10H [facility] Last Admin: 08/12/18 12:25 Dose: Not Given Piperacillin Sod/Tazobactam (Sod 3.375 gm/ Sodium Chloride) 100 mls @ 200 mls/hr IVPB Q8H [facility]; Protocol Last Admin: 08/12/18 14:37 Dose: Not Given Lidocaine (Lidoderm) 1 ea TD DAILY [facility] Last Admin: 08/12/18 09:50 Dose: 1 ea Losartan Potassium (Cozaar) 100 mg PO DAILY [facility] Last Admin: 08/12/18 09:49 Dose: 100 mg Metoclopramide HCl (Reglan) 5 mg IVP Q8 [facility] Last Admin: 08/12/18 14:36 Dose: Not Given Montelukast Sodium (Singulair) 10 mg PO DAILY [facility] Last Admin: 08/12/18 09:49 Dose: 10 mg Morphine Sulfate (Morphine) 4 mg IVP Q4 PRN PRN Reason: Pain, severe (8-10) Last Admin: 08/11/18 20:33 Dose: 4 mg Pregabalin (Lyrica) 75 mg PO DAILY [facility] Last Admin: 08/12/18 09:48 Dose: 75 mg Rosuvastatin Calcium (Crestor) 20 mg PO HS [facility] Last Admin: 08/11/18 21:52 Dose: 20 mg Senna/Docusate Sodium (Senokot S 50 Mg-8.6 Mg) 1 tab PO BID [facility] Last Admin: 08/12/18 18:00 Dose: 1 tab Tramadol HCl (Ultram) 50 mg PO Q6H PRN PRN Reason: Pain, moderate (4-7) Zolpidem Tartrate (Ambien) 5 mg PO [facility] Last Admin: 08/11/18 21:26 Dose: Not Given - Labs Labs: 08/10/18 17:43 08/10/18 17:43 PT 12.9 SECONDS (9.7-12.2) H 08/10/18 17:43 INR 1.2 08/10/18 17:43 APTT 38 SECONDS (21-34) H 08/10/18 17:43 - Constitutional Appears: Well - Head Exam Head Exam: ATRAUMATIC, NORMAL INSPECTION, NORMOCEPHALIC - Eye Exam Eye Exam: EOMI, Normal appearance, PERRL Pupil Exam: NORMAL ACCOMODATION, PERRL - ENT Exam ENT Exam: Mucous Membranes Moist, Normal Exam - Neck Exam Neck Exam: Full ROM, Normal Inspection. absent: Lymphadenopathy - Respiratory Exam Respiratory Exam: Decreased Breath Sounds - Cardiovascular Exam Cardiovascular Exam: REGULAR RHYTHM, +S1, +S2 - GI/Abdominal Exam GI & Abdominal Exam: Soft, Diminished Bowel Sounds - Rectal Exam Rectal Exam: Deferred
--- NOTE | 2018-08-12 23:31 | CARD ---
APPROVED REPORT Date of service: 08/12/2018 EXAM: Two-dimensional and M-mode echocardiogram with Doppler and color Doppler. Other Information Quality : GoodRhythm : INDICATION COPD RISK FACTORS Hypertension Hyperlipidemia Diabetes 2D DIMENSIONS IVSd0.9 (0.7-1.1cm)LVDd4.3 (3.9-5.9cm) PWd1.2 (0.7-1.1cm)LA Byvsap73 (18-58mL) LVDs2.5 (2.5-4.0cm)FS (%) 41.6 % LVEF (%)72.9 (>50%)LVEF (Watson's)77.14 % IVC0.00 cm M-Mode DIMENSIONS RVDd1.17 (2.1-3.2cm)Left Atrium (MM)3.96 (2.5-4.0cm) IVSd1.37 (0.7-1.1cm)Aortic Root2.54 (2.2-3.7cm) LVDd5.04 (4.0-5.6cm)Aortic Cusp Exc.1.61 (1.5-2.0cm) PWd1.24 (0.7-1.1cm)FS (%) 35 % LVDs3.29 (2.0-3.8cm)LVEF (%)70 (>50%) Mitral Valve MV E Rbcosurr21.9cm/sMV A Ntfyfdkd53.9cm/sE/A ratio0.7 TDI Lateral E' Peak V5.64cm/sMedial E' Peak V4.87cm/sE/Lateral E'11.3 E/Medial E'13.1 Tricuspid Valve TR Peak [id number]/sTR Peak Gr.[id number] LEFT VENTRICLE The left ventricle is normal size. There is normal left ventricular wall thickness. The left ventricular function is normal. The left ventricular ejection fraction is within the normal range. There is normal LV segmental wall motion. Transmitral Doppler flow pattern is abnormal. RIGHT VENTRICLE The right ventricle is normal size. ATRIA The left atrium size is normal. The right atrium size is normal. AORTIC VALVE The aortic valve is normal in structure. MITRAL VALVE Mitral regurgitation is trace. TRICUSPID VALVE There is mild tricuspid regurgitation. <Conclusion> Normal LV systolic function. Diastolic dysfunction. Trace MR. Mild TR. Normal chamber size.
[2018-08-13] MEDS: Piperacillin/Tazobact 3.375 GM in Sodium Chloride 100 ML IVPB SCH (06:10)
[2018-08-13] MEDS: Lactated Ringer's 1,000 ML IV SCH (06:12)
--- NOTE | 2018-08-13 07:14 | CP.PCM.PN ---
Subjective - Date & Time of Evaluation Date of Evaluation: 08/13/18 Time of Evaluation: 07:14 - Subjective Subjective: Medicine Progress Note - Dr Gee Bueno's service Patient seen and examined at bedside. Per nursing no acute events overnight. Patient is doing well, pain is controlled. She is ambulating and tolerating diet. Offers no complaints at this time. Objective - Vital Signs/Intake and Output Vital Signs (last 24 hours): Temp Pulse Resp BP Pulse Ox 98.6 F 69 20 157/71 H 95 08/12/18 23:00 08/12/18 23:00 08/12/18 23:00 08/12/18 23:00 08/12/18 23:00 Intake and Output: 08/13/18 08/13/18 06:59 18:59 Intake Total 850 Balance 850 - Medications Medications: Current Medications Famotidine (Pepcid) 20 mg IVP DAILY [facility] Last Admin: 08/12/18 09:49 Dose: 20 mg Glipizide (Glucotrol) 5 mg PO BID [facility] Last Admin: 08/12/18 18:00 Dose: 5 mg Home Med (Leflunomide [Leflunomide]) 10 mg PO DAILY [facility] Lactated Ringer's (Lactated Ringer's) 1,000 mls @ 100 mls/hr IV .Q10H [facility] Last Admin: 08/13/18 06:12 Dose: 100 mls/hr Piperacillin Sod/Tazobactam (Sod 3.375 gm/ Sodium Chloride) 100 mls @ 200 mls/hr IVPB Q8H [facility]; Protocol Last Admin: 08/13/18 06:10 Dose: 200 mls/hr Lidocaine (Lidoderm) 1 ea TD DAILY [facility] Last Admin: 08/12/18 09:50 Dose: 1 ea Losartan Potassium (Cozaar) 100 mg PO DAILY [facility] Last Admin: 08/12/18 09:49 Dose: 100 mg Metoclopramide HCl (Reglan) 5 mg IVP Q8 [facility] Last Admin: 08/13/18 06:11 Dose: 5 mg Montelukast Sodium (Singulair) 10 mg PO DAILY [facility] Last Admin: 08/12/18 09:49 Dose: 10 mg Morphine Sulfate (Morphine) 4 mg IVP Q4 PRN PRN Reason: Pain, severe (8-10) Last Admin: 08/11/18 20:33 Dose: 4 mg Pregabalin (Lyrica) 75 mg PO DAILY [facility] Last Admin: 08/12/18 09:48 Dose: 75 mg Rosuvastatin Calcium (Crestor) 20 mg PO [facility] Last Admin: 08/12/18 22:01 Dose: 20 mg Senna/Docusate Sodium (Senokot S 50 Mg-8.6 Mg) 1 tab PO BID [facility] Last Admin: 08/12/18 18:00 Dose: 1 tab Tramadol HCl (Ultram) 50 mg PO Q6H PRN PRN Reason: Pain, moderate (4-7) Zolpidem Tartrate (Ambien) 5 mg PO [facility] Last Admin: 08/12/18 22:01 Dose: 5 mg - Labs Labs: 08/10/18 17:43 08/10/18 17:43 PT 12.9 SECONDS (9.7-12.2) H 08/10/18 17:43 INR 1.2 08/10/18 17:43 APTT 38 SECONDS (21-34) H 08/10/18 17:43 - Constitutional Appears: Non-toxic, No Acute Distress - Head Exam Head Exam: ATRAUMATIC, NORMAL INSPECTION, NORMOCEPHALIC - Eye Exam Eye Exam: EOMI, Normal appearance - ENT Exam ENT Exam: Mucous Membranes Moist - Neck Exam Neck Exam: Full ROM - Respiratory Exam Respiratory Exam: Clear to Ausculation Bilateral, NORMAL BREATHING PATTERN. absent: Rales, Rhonchi, Wheezes - Cardiovascular Exam Cardiovascular Exam: REGULAR RHYTHM, +S1, +S2 - GI/Abdominal Exam GI & Abdominal Exam: Soft. absent: Guarding, Rigid, Tenderness Additional comments: Incision c/d/i with dermabond - Extremities Exam Extremities Exam: Normal Inspection - Back Exam Back Exam: NORMAL INSPECTION - Neurological Exam Neurological Exam: Alert, Awake, Oriented x3 - Psychiatric Exam Psychiatric exam: Normal Affect, Normal Mood Assessment and Plan - Assessment and Plan (Free Text) Assessment: Abdominal Pain -Patient is s/p Abdominal wall exploration. Excision of mesh POD#1 -Pain has resolved, ambulating and tolerating diet -Per surgical team, patient is cleared for discharge home Imaging: CT abdomen/pelvis: Again seen is a small collection which now measures approx imately 6.7 x 1.4 cm along the lower anterior abdominal wall. Radiopaque densities are noted within abdomen posterior to this finding presumably postsurgical in etiology. (see full report) Hypertension -Cozaar 100mg PO daily Diabetes Mellitus -Glipizide 5mg PO daily Hyperlipidemia -Crestor 20mg PO HS GI/DVT ppx : -Pepcid 20mg IVP daily -SCDs DISPO: Patient cleared for discharge home per surgical team. Patient to avoid heavy lifting and to follow up with Dr Choi outpatient. Plan discussed with Dr eGe Hager DO PGY-2
[2018-08-13 08:04] VITALS: BP 139/81; PULSE 81; RESP 18; TEMP 98.4; O2SAT 94
[2018-08-13] MEDS: Lidocaine 5% Patch TD SCH (10:57)
[2018-08-13] MEDS: Docusate-Senna 50 mg-8.6 mg Tab PO SCH (10:58)
--- NOTE | 2018-08-13 11:12 | CP.PCM.PN ---
Subjective - Date & Time of Evaluation Date of Evaluation: 08/13/18 Time of Evaluation: 11:05 - Subjective Subjective: Surgical Progress Note for Dr. Choi Patient seen and examined at bedside. She states she had no abdominal pain currently. She denies nausea, vomiting. She is passing flatus and ambulating without difficulty. She denies fevers, chills, headache, dizziness, chest pain, shortness of breath, palpitations, nausea, vomiting, diarrhea, leg pain or swelling. Objective - Vital Signs/Intake and Output Vital Signs (last 24 hours): Temp Pulse Resp BP Pulse Ox 98.4 F 81 18 139/81 94 L 08/13/18 07:00 08/13/18 07:00 08/13/18 07:00 08/13/18 07:00 08/13/18 07:00 Intake and Output: 08/13/18 08/13/18 06:59 18:59 Intake Total 850 1100 Balance 850 1100 - Medications Medications: Current Medications Famotidine (Pepcid) 20 mg IVP DAILY [facility] Last Admin: 08/13/18 10:58 Dose: 20 mg Glipizide (Glucotrol) 5 mg PO BID [facility] Last Admin: 08/13/18 10:58 Dose: 5 mg Home Med (Leflunomide [Leflunomide]) 10 mg PO DAILY [facility] Lactated Ringer's (Lactated Ringer's) 1,000 mls @ 100 mls/hr IV .Q10H [facility] Last Admin: 08/13/18 06:12 Dose: 100 mls/hr Piperacillin Sod/Tazobactam (Sod 3.375 gm/ Sodium Chloride) 100 mls @ 200 mls/hr IVPB Q8H [facility]; Protocol Last Admin: 08/13/18 06:10 Dose: 200 mls/hr Lidocaine (Lidoderm) 1 ea TD DAILY [facility] Last Admin: 08/13/18 10:57 Dose: 1 ea Losartan Potassium (Cozaar) 100 mg PO DAILY [facility] Last Admin: 08/13/18 10:58 Dose: 100 mg Metoclopramide HCl (Reglan) 5 mg IVP Q8 [facility] Last Admin: 08/13/18 06:11 Dose: 5 mg Montelukast Sodium (Singulair) 10 mg PO DAILY [facility] Last Admin: 08/13/18 10:58 Dose: 10 mg Morphine Sulfate (Morphine) 4 mg IVP Q4 PRN PRN Reason: Pain, severe (8-10) Last Admin: 08/11/18 20:33 Dose: 4 mg Pregabalin (Lyrica) 75 mg PO DAILY [facility] Last Admin: 08/13/18 10:58 Dose: 75 mg Rosuvastatin Calcium (Crestor) 20 mg PO [facility] Last Admin: 08/12/18 22:01 Dose: 20 mg Senna/Docusate Sodium (Senokot S 50 Mg-8.6 Mg) 1 tab PO BID [facility] Last Admin: 08/13/18 10:58 Dose: 1 tab Tramadol HCl (Ultram) 50 mg PO Q6H PRN PRN Reason: Pain, moderate (4-7) Zolpidem Tartrate (Ambien) 5 mg PO [facility] Last Admin: 08/12/18 22:01 Dose: 5 mg - Labs Labs: 08/10/18 17:43 08/10/18 17:43 PT 12.9 SECONDS (9.7-12.2) H 08/10/18 17:43 INR 1.2 08/10/18 17:43 APTT 38 SECONDS (21-34) H 08/10/18 17:43 - Constitutional Appears: Well, No Acute Distress - Head Exam Head Exam: ATRAUMATIC, NORMOCEPHALIC - Eye Exam Eye Exam: EOMI - ENT Exam ENT Exam: Mucous Membranes Moist - Neck Exam Neck Exam: Full ROM - Respiratory Exam Respiratory Exam: Clear to Ausculation Bilateral, NORMAL BREATHING PATTERN - Cardiovascular Exam Cardiovascular Exam: REGULAR RHYTHM, +S1, +S2 - GI/Abdominal Exam GI & Abdominal Exam: Soft, Normal Bowel Sounds. absent: Tenderness Additional comments: Dressing clean, dry, intact Mid abdominal incision site - no evidence of erythema, tenderness, healing well. - Extremities Exam Extremities Exam: absent: Calf Tenderness, Pedal Edema - Neurological Exam Neurological Exam: Alert, Awake, Oriented x3 Assessment and Plan - Assessment and Plan (Free Text) Assessment: 73 year old female POD 1 excision of mesh from prior hernia repair Plan: Dressing removed Patient is cleared for discharge from surgical perspective Patient to follow up with Dr. Choi in 7 to 10 days in his office Avoid heavy lifting Ajit Lemus, PGY1
== END 2018-08-13 13:28 | disposition home or self-care (01) | DRG 392 ==
LOC: C.ER 16:58 → C.9E 19:29 → C.5S 22:41 → OBSVTOIN 08-12 11:28
PROVIDERS: ADMIT Internal Medicine Nephrology; ATTEND Internal Medicine Nephrology
DX: R10.11 Right upper quadrant pain (principal); F32.9 Major depressive disorder, single episode, unspecified; J44.9 Chronic obstructive pulmonary disease, unspecified; I10 Essential (primary) hypertension; E78.00 Pure hypercholesterolemia, unspecified; M19.90 Unspecified osteoarthritis, unspecified site; E11.9 Type 2 diabetes mellitus without complications; G47.00 Insomnia, unspecified; Z90.49 Acquired absence of other specified parts of digestive tract; Z87.891 Personal history of nicotine dependence

== ENCOUNTER 2018-09-22 09:09 | Emergency (ER) | payer OTHER ==
[2018-09-22 09:27] VITALS: BMI 28.0
[2018-09-22 09:30] VITALS: BP 178/98; PULSE 71; RESP 18; TEMP 98; O2SAT 96
--- NOTE | 2018-09-22 10:26 | C.PDOC ---
History Of Present Illness 73 y/o female presents to the ER complaining of left knee pain which has been present for the past 3 days.Patient states that she has pain mainly over the lateral aspect of knee. Patient reports that she heard "pop"in her knee while she was sitting down. She notes that she is able to ambulate. She did not use any NSAIDS, heating pads, and ice packs. Denies having direct trauma, weakness, and numbness. Time Seen by Provider: 09/22/18 09:37 Chief Complaint (Nursing): Lower Extremity Problem/Injury History Per: Patient History/Exam Limitations: no limitations Onset/Duration Of Symptoms: Days Current Symptoms Are (Timing): Still Present Severity: Moderate Past Medical History Reviewed: Historical Data, Nursing Documentation, Vital Signs Vital Signs: Last Vital Signs Temp 98 F 09/22/18 09:27 Pulse 71 09/22/18 09:27 Resp 18 09/22/18 09:27 BP 178/98 H 09/22/18 09:27 Pulse Ox 96 09/22/18 09:27 - Medical History PMH: Arthritis, Asthma, COPD, Depression, Hiatal Hernia, HTN, Hypercholesterolemia Denies: Chronic Kidney Disease Surgical History: Cholecystectomy - [facility] Procedures EXCISION OF RIGHT ABDOMEN MUSCLE, OPEN APPROACH (08/29/15) REMOVAL OF SYNTHETIC SUBSTITUTE FROM ABD WALL, OPEN APPROACH (08/12/18) SUTURE REMOVAL FROM TRUNK REGION (08/29/15) Family History: States: No Known Family Hx - Social History Hx Alcohol Use: No Hx Substance Use: No - Immunization History Hx Tetanus Toxoid Vaccination: No Hx Influenza Vaccination: No Hx Pneumococcal Vaccination: Yes Review Of Systems Except As Marked, All Systems Reviewed And Found Negative. Musculoskeletal: Positive for: Other (left knee pain) Neurological: Negative for: Weakness, Numbness Physical Exam - Physical Exam Appears: No Acute Distress Skin: Normal Color, Warm, Dry Head: Atraumatic, Normacephalic Eye(s): bilateral: Normal Inspection Nose: Normal Oral Mucosa: Moist Neck: Supple Chest: Symmetrical Extremity: Normal ROM (left knee), No Tenderness (left knee ), No Swelling (left knee) Pulses: Left Dorsalis Pedis: Normal Neurological/Psych: Oriented x3, Normal Speech ED Course And Treatment O2 Sat by Pulse Oximetry: 96 (RA) Pulse Ox Interpretation: Normal - Other Rad X-Ray-Left Knee X-Ray: Viewed By Me, Read By Radiologist Interpretation: Left knee three views. History: Pain. Comparison: None available. Findings: Severe medial and moderate patellofemoral compartment joint space narrowing. Small suprapatellar joint effusion. Enthesopathic change noted at the superior bony patella. Prominent vascular calcifications. No evidence of acute displaced fracture or dislocation. Impression: Severe medial and moderate patellofemoral compartment joint space narrowing. Small suprapatellar joint effusion. Enthesopathic change noted at the superior bony patella. Prominent vascular calcifications. No evidence of acute displaced fracture or dislocation. If pain persists, consider MRI. Medical Decision Making Medical Decision Making: L knee sprain x 3 days no trauma normal exam and x-rays Disposition Doctor Will See Patient In The: Office Counseled Patient/Family Regarding: Studies Performed, Diagnosis - Disposition Referrals: Iman Peralta MD [Medical Doctor] - Disposition: HOME/ ROUTINE Disposition Time: 10:26 Condition: GOOD Additional Instructions: [place] de hielo 1/2 hora por hora, NADA caliente Ibuprofeno 400 mg cada 6 horas esvin necessario Sigue con [facility] esvin necessario Instructions: Knee Sprain (DC) Forms: [employer] (Latvian) Print Language: HUNGARIAN - Clinical Impression Clinical Impression: Left knee sprain - Scribe Statement The provider has reviewed the documentation as recorded by the Sergeyibfaviola Gray Provider Attestation: All medical record entries made by the Scribe were at my direction and personally dictated by me. I have reviewed the chart and agree that the record accurately reflects my personal performance of the history, physical exam, medical decision making, and the department course for this patient. I have also personally directed, reviewed, and agree with the discharge instructions and disposition.
--- NOTE | 2018-09-22 10:35 | RAD ---
Left knee three views History: Pain. Comparison: None available. Findings: Severe medial and moderate patellofemoral compartment joint space narrowing. Small suprapatellar joint effusion. Enthesopathic change noted at the superior bony patella. Prominent vascular calcifications. No evidence of acute displaced fracture or dislocation. Impression: Severe medial and moderate patellofemoral compartment joint space narrowing. Small suprapatellar joint effusion. Enthesopathic change noted at the superior bony patella. Prominent vascular calcifications. No evidence of acute displaced fracture or dislocation. If pain persists, consider MRI.
== END 2018-09-22 10:54 | disposition home or self-care (01) ==
LOC: C.ER 09:09
DX: S83.92XA Sprain of unspecified site of left knee, initial encounter (principal); X58.XXXA Exposure to other specified factors, initial encounter; E78.00 Pure hypercholesterolemia, unspecified; I10 Essential (primary) hypertension; J44.9 Chronic obstructive pulmonary disease, unspecified